=== PATIENT | male | born 1940 | race Asian ===

== ENCOUNTER 2021-03-07 21:13 | Inpatient (IN) | payer MEDICARE, BC ==
[~2021-03-07] VITALS: Ht 177.8 cm; Wt 73.0 kg
--- NOTE | 2021-03-07 21:39 | NUR ---
PATIENT TO ER BED 10 [facility]IBRA FROM FACILITY FOR UNWITNESSED GROUND LEVEL FALL. PATIENT IS BASELINE ALERT AND ORIENTED x1. PATIENT IS BREATHING EVENLY AND UNLABORED ON ROOM AIR. CONNECTED TO THE MONITOR.
[2021-03-07 22:42] LABS: BASOPHILS # (AUTO) 0.1 /CMM (0.0-0.2); BASOPHILS % (AUTO) 0.9 % (0.0-2.0); EOSINOPHILS % (AUTO) 3.5 % (0.0-6.0); HEMATOCRIT 34 % (39-51); HEMOGLOBIN 10.8 g/dL (13.5-17.5); LYMPHOCYTES # (AUTO) 2.2 /CMM (0.8-4.8); LYMPHOCYTES % (AUTO) 18.3 % (20.0-44.0); MEAN CORPUSCULAR HGB CONC 32 g/dl (31.0-36.0); MEAN CORPUSCULAR VOLUME 91 fL (80-96); MONOCYTES # (AUTO) 1.3 /CMM (0.1-1.30); MONOCYTES % (AUTO) 10.8 % (2.0-12.0); NEUTROPHILS % (AUTO) 66.5 % (43.0-81.0); PLATELET COUNT (AUTO) 382 /CMM (150-450); RED BLOOD CELL COUNT(AUTO) 3.75 MIL/uL (4.5-6.0); WHITE BLOOD COUNT (AUTO) 12.1 K/uL (4.3-11.0)
[2021-03-07 22:49] LABS: CALCIUM, SERUM 8.1 mg/dL (8.5-10.1); CREATININE 0.9 mg/dL (0.6-1.3); POTASSIUM 4.4 mmol/L (3.5-5.1)
--- NOTE | 2021-03-07 22:54 | NUR ---
COVID SWAB ANTIGEN SENT TO THE LAB.
[2021-03-07 22:55] LABS: ALBUMIN 2.5 g/dL (3.4-5.0); BILIRUBIN,TOTAL 0.6 mg/dL (0.2-1.0); TOTAL PROTEIN, SERUM 6.5 g/dL (6.4-8.2)
[2021-03-07] MEDS ORDERED: IOHEXOL-300 100 ML VIAL IV ONE (23:11)
[2021-03-07] MEDS ORDERED: IV NS 0.9% 250 ML IV ONE (23:11)
[2021-03-07] MEDS ORDERED: CT SWABBABLE VALVE TRANS SET 1 EA INFUS.SET MC ONE (23:11)
--- NOTE | 2021-03-07 23:17 | NUR ---
PER LAB COVID NEG
--- NOTE | 2021-03-07 23:21 | NUR ---
PATIENT TAKEN TO CT W/ CONTRAST
[2021-03-08] MEDS ORDERED: MAGNESIUM HYDROXIDE 30 ML UDC PO PRN
[2021-03-08] MEDS ORDERED: Z GUARD REMEDY 2 OZ OINT TP PRN
[2021-03-08] MEDS ORDERED: ACETAMINOPHEN 325 MG TABLET PO PRN
[2021-03-08] MEDS ORDERED: ZOLPIDEM TARTRATE 5 MG TABLET PO PRN
[2021-03-08] MEDS ORDERED: HYDROCODONE/APAP 5/325MG TABLET PO PRN
[2021-03-08] MEDS ORDERED: MAG HYDROX/AL HYDROX/SIMETH 30 ML UDC PO PRN
[2021-03-08] MEDS ORDERED: ASPIRIN 325 MG TABLET PO ONE
[2021-03-08] MEDS ORDERED: ONDANSETRON HCL/PF 4 MG/2 ML VIAL IVP PRN
[2021-03-08] MEDS ORDERED: ASPIRIN 325 MG TABLET ONE (00:26)
--- NOTE | 2021-03-08 02:04 | NUR ---
BED 106
--- NOTE | 2021-03-08 02:09 | NUR ---
RN NOTES RECEIVED ER ADMISSION REPORT FROM GREGORIO BAEZ. ALL PERTINENT ADMISSION INFO REGARDING PT NOTED. WILL WAIT FOR PT TO BE TRANSFERRED TO UNIT AND ADDRESS NEEDS ACCORDINGLY. RESEARCH FOOD TECHNOLOGIST MADE AWARE.
--- NOTE | 2021-03-08 02:13 | NUR ---
REPORT GIVEN TO HANANE PERKINS FOR BERNARDINO.
[2021-03-08 02:25] VITALS: BP 144/87
--- NOTE | 2021-03-08 02:25 | NUR ---
RN NOTES RECEIVED PT FROM ER VIA GURNEY ACCOMPANIED BY 2 ER STAFFS AND TRANSFERRED TO BED VIA 2 PERSON ASSIST. PT IS ALERT AND ORIENTED X2-3. PT ON ROOM AIR WITH RESPIRATIONS EVEN AND UNLABORED. COMPREHENSIVE PHYSICAL ASSESSMENT AND PATIENT CARE DONE. CALL LIGHT WITHIN REACH, SAFETY MEASURES AND ISOLATION PRECAUTION IN PLACE, WILL CONTINUE MONITOR AND ASSESS THROUGHOUT THE SHIFT. WILL CARRY OUT MD ORDERS ACCORDINGLY. DIRECTOR PRODUCT SAFETY MADE AWARE.
--- NOTE | 2021-03-08 02:25 | NUR ---
PATIENT TAKEN TO ASSIGNED ROOM FOR BERNARDINO.
[2021-03-08] MEDS: ENOXAPARIN SODIUM 40 MG/0.4 ML DISP.SYRIN SQ SCH ×2 (03:05→20:54)
--- NOTE | 2021-03-08 03:30 | NUR ---
RN NOTES PATIENT REMAINS IN NO ACUTE RESPIRATORY DISTRESS AT THIS TIME, NO CHANGES TO CONDITION/STATUS. AM PATIENT CARE DONE. ORGANISATIONAL PSYCHOLOGIST WELL AWARE. WILL CONTINUE TO MONITOR AND REASSESS FOR ANY CHANGES THROUGHOUT THE SHIFT
[2021-03-08 04:00] VITALS: BP 140/80
[2021-03-08] MEDS ORDERED: DEXTROSE 50%-WATER 50 ML DISP.SYRIN IV PRN (04:30)
[2021-03-08] MEDS: INSULIN REGULAR, HUMAN 100 UNIT/ML 3 ML VIAL SQ PRN (05:09)
[2021-03-08] MEDS: BLOOD SUGAR DIAGNOSTIC 1 EACH STRIP IN SCH ×4 (05:09→23:39)
[2021-03-08] MEDS: METOPROLOL TARTRATE 25 MG TABLET PO SCH ×3 (06:28→20:52)
--- NOTE | 2021-03-08 06:50 | NUR ---
RN CLOSING NOTE: PATIENT REMAINS IN ROOM IN NO SIGNS OF RESPIRATORY DISTRESS, PATIENT STILL ON 5L OF O2 VIA NC TOLERATING WELL SATURATING @ >95% SP02. SAFETY MEASURES IMPLEMENTED, BED IN LOWEST POSITION, LOCKED, SIDE RAILS UP, CALL LIGHT WITHIN REACH. ALL NEEDS AND ORDERS ADDRESSED DURING THE SHIFT. IV ACCESS MAINTAINED INTACT, SECURED AND FLUSHING WELL. ALL DUE MEDS GIVEN ORDERED & SCHEDULED ; PATIENT TOLERATED WELL. PATIENT KEPT CLEAN AND COMFORTABLE WITHIN THE SHIFT. PATIENT ENDORSED TO INCOMING SHIFT RN WITH STABLE VITAL SIGN AND FOR CONTINUITY OF CARE, WILL ALSO ENDORSE TO AM SHIFT RN TO REFER TO HOSPITALIST ONCE SWALLOW EVAL DONE FOR APPROPRIATE DIET. AM SHIFT SUGGESTION CLERK MADE AWARE.
[2021-03-08 06:51] LABS: BASOPHILS # (AUTO) 0.1 /CMM (0.0-0.2); BASOPHILS % (AUTO) 0.7 % (0.0-2.0); EOSINOPHILS % (AUTO) 3.7 % (0.0-6.0); HEMATOCRIT 34 % (39-51); HEMOGLOBIN 10.9 g/dL (13.5-17.5); LYMPHOCYTES # (AUTO) 1.9 /CMM (0.8-4.8); LYMPHOCYTES % (AUTO) 17.5 % (20.0-44.0); MEAN CORPUSCULAR HGB CONC 32 g/dl (31.0-36.0); MEAN CORPUSCULAR VOLUME 92 fL (80-96); MONOCYTES % (AUTO) 9.1 % (2.0-12.0); NEUTROPHILS # (AUTO) 7.4 /CMM (1.8-8.9); PLATELET COUNT (AUTO) 368 /CMM (150-450); RED BLOOD CELL COUNT(AUTO) 3.68 MIL/uL (4.5-6.0); WHITE BLOOD COUNT (AUTO) 10.8 K/uL (4.3-11.0)
[2021-03-08 07:29] LABS: CALCIUM, SERUM 8.1 mg/dL (8.5-10.1); CREATININE 0.7 mg/dL (0.6-1.3); MAGNESIUM 2.1 mg/dL (1.8-2.4); PHOSPHORUS 3.7 mg/dL (2.5-4.9); POTASSIUM 3.8 mmol/L (3.5-5.1)
--- NOTE | 2021-03-08 07:30 | NUR ---
RN OPENING NOTE: PATIENT IN BED, NO SIGNS OF RESPIRATORY DISTRESS. PATIENT CONTINUES ON 5L OF O2 VIA NC TOLERATING WELL SATURATING @ >95% SP02. SAFETY MEASURES IMPLEMENTED, BED IN LOWEST POSITION, LOCKED, SIDE RAILS UP, CALL LIGHT WITHIN REACH. ALL NEEDS AND ORDERS ADDRESSED AT THIS TIME. IV ACCESS MAINTAINED INTACT, SECURED AND FLUSHING WELL. WILL CONTINUE POC AND FOLLOW UP WITH DIETITIAN AND PMD REGARDING DIET CONCERNS WHEN SWALLOW EVALUATION COMPLETE.
[2021-03-08 08:00] VITALS: BP 131/98
[2021-03-08] MEDS ORDERED: MAGN400O6 GT (08:05)
[2021-03-08] MEDS ORDERED: PANT40TA2 GT (08:05)
[2021-03-08] MEDS ORDERED: LACT1CAP61 GT (08:05)
[2021-03-08] MEDS ORDERED: INSU100V7 SQ (08:05)
[2021-03-08] MEDS ORDERED: ACET325T53 GT ×2 (08:05)
[2021-03-08] MEDS ORDERED: LEVE1000 GT (08:05)
[2021-03-08] MEDS ORDERED: MULT-447 GT (08:05)
[2021-03-08] MEDS ORDERED: INSU100V39 SQ (08:05)
[2021-03-08] MEDS ORDERED: LATA2.5D15 OP (08:05)
[2021-03-08] MEDS ORDERED: AMIN887L GT (08:05)
[2021-03-08] MEDS ORDERED: ATOR80TA GT (08:05)
[2021-03-08] MEDS ORDERED: METO25TA6 GT (08:05)
[2021-03-08] MEDS ORDERED: EZET10TA15 GT (08:05)
[2021-03-08] MEDS ORDERED: FURO-145 GT (08:05)
[2021-03-08] MEDS ORDERED: MAGN400T8 GT (08:05)
[2021-03-08] MEDS ORDERED: CRAN3875 GT (08:05)
[2021-03-08] MEDS ORDERED: ASCO500C17 GT (08:05)
[2021-03-08] MEDS ORDERED: LORA-259 PO (08:05)
[2021-03-08] MEDS ORDERED: METOPROLOL TARTRATE 25 MG TABLET PO SCH (09:00)
[2021-03-08 12:00] VITALS: BP 128/89
[2021-03-08] MEDS ORDERED: LORAZEPAM INJ 2 MG/ML VIAL IV PRN (15:30)
[2021-03-08 16:00] VITALS: BP 126/81
--- NOTE | 2021-03-08 19:30 | NUR ---
RN CLOSING NOTE: PATIENT IN BED, NO SIGNS OF RESPIRATORY DISTRESS. PATIENT CONTINUES ON 5L OF O2 VIA NC TOLERATING WELL SATURATING @ >95% SP02. CONTINUES ON TELEMETRY WITHOUT ECTOPY OR C/O CP OR SOB. SAFETY MEASURES IMPLEMENTED, BED IN LOWEST POSITION, LOCKED, SIDE RAILS UP, CALL LIGHT WITHIN REACH. ALL NEEDS AND ORDERS ADDRESSED AT THIS TIME. IV ACCESS MAINTAINED INTACT, SECURED AND FLUSHING WELL. SWALLOW EVALUATION COMPLETE WITH DIET ORDERED, DIETARY CONSULT PENDING. POOR APPETITE, 25% OF LUNCH AND DINNER CONSUMED. MRI WITH AND WITHOUT CONTRAST FOR TOMORROW. MRI CHECKLIST COMPLETED. WILL ENDORSE TO NIGHT NURSE FOR BERNARDINO.
--- NOTE | 2021-03-08 19:40 | NUR ---
RN NOTE RECEIVED PT IN BED, ALERT AND ORIENTED X 2-3. NO S/SX OF DISTRESS NOTED. DENIES ANY SOB OR PAIN. ON ROOM AIR. O2 SAT AT 98 %. IV ON RAC PATENT AND INTACT, FLUSHES WELL. ALL SAFETY MEASURES IMPLEMENTED PER PROTOCOL, CALL LIGHT WITHIN REACH, BED LOCKED IN LOWEST POSITION. WILL CONTINUE TO MONITOR. SIDE RAILS UP.
[2021-03-08 20:00] VITALS: BP 130/76
--- NOTE | 2021-03-08 22:29 | NUR ---
RN NOTE ENDORSED TO GREGORIO WOOD FOR BERNARDINO. PT IN BED, SLEEPING, AROUSES EASILY. NO DISTRESS NOTED.
--- NOTE | 2021-03-08 22:35 | NUR ---
MS RN NOTES RECEIVED PT SLEEPING. NO COMPLAINT OF PAIN OR ACUTE RESPIRATORY DISTRESS. WILL CONTINUE TO MONITOR.
--- NOTE | 2021-03-09 00:17 | NUR ---
MS RN NOTES PATIENT REFUSED 0000 VITALS.
--- NOTE | 2021-03-09 02:54 | NUR ---
MS RN NOTES PATIENT REFUSING BED BATH AND CONTINUES TO REFUSE VITALS TO BE TAKEN.
[2021-03-09] MEDS: INSULIN REGULAR, HUMAN 100 UNIT/ML 3 ML VIAL SQ PRN ×2 (06:40→23:14)
[2021-03-09] MEDS: BLOOD SUGAR DIAGNOSTIC 1 EACH STRIP IN SCH ×4 (06:41→23:13)
--- NOTE | 2021-03-09 06:55 | NUR ---
MS RN NOTES PATIENT IN BED, ASLEEP, ALERT AND ORIENTED X 1-2. BREATHING EVEN AND UNLABORED ON ROOM AIR. SHOWS NO SIGNS OF ACUTE RESPIRATORY DISTRESS. NO ACUTE PAIN. IV CLEAN DRY AND INTACT. SHOWS NO SIGNS OF INFILTRATION, NO REDNESS. ALL DUE MEDICATIONS GIVEN. ALL NEEDS ATTENDED TO. SAFETY PRECAUTIONS IN PLACE. BED IN LOWEST POSITION, LOCKED, AND CALL LIGHT KEPT WITHIN REACH. WILL ENDORSE TO AM NURSE.
--- NOTE | 2021-03-09 07:30 | NUR ---
MS/RN OPENING NOTE RECEIVED PATIENT FROM WIRE ROLLER NURSE. PATIENT SEEN LAYING IN HOSPITAL BED A/O X1-2. NO ACUTE DISTRESS NOTED AT THIS TIME. PATIENT ON ROOM AIR, TOLERATING WELL, NO SOB NOTED, BREATHING EVEN NON LABORED. SAFETY MEASURES IN PLACE, BED LOCKED AND IN LOWEST POSITION, CALL LIGHT WITHIN REACH, WILL CONTINUE TO MONITOR AND ENSURE SAFETY.
[2021-03-09 08:00] VITALS: BP 112/78
--- NOTE | 2021-03-09 08:20 | NUR ---
WOUND CARE CONSULT: PT ADAMANTLY REFUSED TO TURN FOR SKIN ASSESSMENT. LIMITED ASSESSMENT TODAY DUE TO PT REFUSAL. PT NOTED TO BE IRRITABLE. CLAMPED G TUBE NOTED WELL DISCOLORATION TO LEFT CHEEK, PRESENT ON ADMISSION. PER ADMISSION PHOTO THERE IS SCARRING TO SACRUM WHICH EXTENDS TO BUTTOCKS, PRESENT ON ADMISSION. RECOMMENDATIONS MADE FOR SKIN PROTECTION. DISCUSSED WITH NURSING STAFF. MD IN AGREEMENT WITH PLAN OF CARE.
[2021-03-09] MEDS: METOPROLOL TARTRATE 25 MG TABLET PO SCH ×2 (08:52→22:06)
[2021-03-09 10:01] LABS: FERRITIN 724 ng/mL (8-388)
[2021-03-09 10:18] LABS: IRON, SERUM 35 ug/dl (50-175); TOTAL IRON BINDING CAPACITY 153 ug/dl (250-450)
[2021-03-09] MEDS ORDERED: IOHEXOL-300 100 ML VIAL IV ONE (14:55)
[2021-03-09] MEDS ORDERED: IV NS 0.9% 250 ML IV ONE (14:56)
[2021-03-09 16:49] VITALS: BP 120/85
--- NOTE | 2021-03-09 18:50 | NUR ---
MS/IT DESKTOP SUPPORT TECHNICIAN REQUEST PATIENT'S , ANASTASIA, HAS REQUESTED TO SPEAK TO THE HOSPITALIST, ATTEMPTS WERE MADE THROUGHOUT THE SHIFT TO HAVE THE HOSPITALIST REACH OUT TO THE PATIENT'S . PATIENT'S STATED SHE HAS NOT RECEIVED A CALL BACK AT THIS TIME. PATIENT'S IS REQUESTING TO HAVE THE PATIENT BE DISCHARGED TOMORROW MORNING. WILL ENDORSE TO ON-COMING NURSE.
--- NOTE | 2021-03-09 18:56 | NUR ---
MS/RN CLOSING NOTE PATIENT SEEN LAYING IN HOSPITAL BED A/O X1-2. NO ACUTE DISTRESS NOTED AT THIS TIME. PATIENT ON ROOM AIR, TOLERATING WELL, NO SOB NOTED, BREATHING EVEN NON LABORED. SAFETY MEASURES IN PLACE, BED LOCKED AND IN LOWEST POSITION, CALL LIGHT WITHIN REACH, WILL CONTINUE TO MONITOR AND ENSURE SAFETY. ALL NEEDS MET THROUGHOUT THE SHIFT. WILL ENDORSE TO HIGH MAN NURSE.
--- NOTE | 2021-03-09 19:35 | NUR ---
RN NOTE RECEIVED PT IN BED, ALERT AND ORIENTED X 2-3. NO S/SX OF DISTRESS NOTED. DENIES ANY SOB OR PAIN. ON ROOM AIR, TOLERATING WELL. IV ON RAC PATENT AND INTACT, FLUSHES WELL. ALL SAFETY MEASURES IMPLEMENTED PER PROTOCOL, CALL LIGHT WITHIN REACH, BED LOCKED IN LOWEST POSITION. WILL CONTINUE TO MONITOR. SIDE RAILS UP.
[2021-03-09 20:00] VITALS: BP 124/84
[2021-03-09] MEDS: ENOXAPARIN SODIUM 40 MG/0.4 ML DISP.SYRIN SQ SCH (22:08)
[2021-03-10 04:00] VITALS: BP 144/96
[2021-03-10] MEDS: BLOOD SUGAR DIAGNOSTIC 1 EACH STRIP IN SCH ×2 (05:51→12:18)
[2021-03-10] MEDS: INSULIN REGULAR, HUMAN 100 UNIT/ML 3 ML VIAL SQ PRN (05:51)
--- NOTE | 2021-03-10 06:30 | NUR ---
RN NOTE PT SLEEPING, AROUSES EASILY. BREATHING EVEN AND UNLABORED. NO SIGNIFICANT CHANGES NOTED. FSBS AT 107, NO INSULIN COVERAGE. NO SIGNS OF PAIN. ALL SAFETY MEASURES MAINTAINED, ON FREQUENT VISUAL CHECKS. WILL ENDORSE TO NEXT SHIFT NURSE FOR BERNARDINO.
--- NOTE | 2021-03-10 07:30 | NUR ---
RN OPENING PATIENT PRESENT IN BED, A/OX2, MED SURG STATUS, ON ROOM AIR, SPO2 98%, BED RESTED, DENIES PAIN OR DISCOMFORT, IV LINE INTACT AND PATENT,SAFETY MEASURES IN PLACE, BED LOCKED, LOWEST POSITION, BED ALARM ON, WILL CONT TO MONITOR
[2021-03-10 08:00] VITALS: BP 148/85
[2021-03-10 08:24] VITALS: BP 148/85
[2021-03-10] MEDS: METOPROLOL TARTRATE 25 MG TABLET PO SCH (08:24)
--- NOTE | 2021-03-10 09:00 | NUR ---
DAUGHTER ANASTASIA CALLED, REQUESTED PATIENT TO BE DISCHARGE, NURSING SENIOR MEDICAL TRANSCRIPTIONIST, FASHION CONSULTANT SELLING AND MD AWARE
--- NOTE | 2021-03-10 10:27 | NUR ---
DR. HOYOS NOTIFIED AND MADE AWARE COMPLAINING THAT NO DOCTOR CALLING HER /UPDATING HER WITH PT. CONDITION AND WANTED TO TAKE HIM BACK TO SNF.EMOTIONAL SUPPORT GIVEN CM MADE AWARE.
--- NOTE | 2021-03-10 13:37 | NUR ---
DISCHARGE NOTE Ambulance at bed site [facility] Unit [address][id number], confirmed patient name and destination, report given to Vanessa PERKINS at [facility], [place] notifyed, discharge instruction and records provided, IV line and ID band removed
== END 2021-03-10 13:47 | DRG 280 ==
LOC: ER 21:18 → TELE1 03-08 02:15 → MEDSG1 03-08 20:25
PROVIDERS: ADMIT Nurse Practitioner Acute Care
DX: R55 Syncope and collapse (principal); G93.41 Metabolic encephalopathy; I21.A1 Myocardial infarction type 2; E44.0 Moderate protein-calorie malnutrition; N39.0 Urinary tract infection, site not specified; E11.9 Type 2 diabetes mellitus without complications; Z86.73 Personal history of transient ischemic attack (TIA), and cerebral infarction without residual deficits; E78.5 Hyperlipidemia, unspecified; G40.909 Epilepsy, unspecified, not intractable, without status epilepticus; I25.10 Atherosclerotic heart disease of native coronary artery without angina pectoris; F03.90 Unspecified dementia, unspecified severity, without behavioral disturbance, psychotic disturbance, mood disturbance, and anxiety; Z20.822 Contact with and (suspected) exposure to COVID-19; I48.91 Unspecified atrial fibrillation; N40.0 Benign prostatic hyperplasia without lower urinary tract symptoms; R13.10 Dysphagia, unspecified; Z91.81 History of falling; Z95.0 Presence of cardiac pacemaker; K21.9 Gastro-esophageal reflux disease without esophagitis; J44.9 Chronic obstructive pulmonary disease, unspecified; Z86.16 Personal history of COVID-19; I50.9 Heart failure, unspecified; I11.0 Hypertensive heart disease with heart failure; M62.50 Muscle wasting and atrophy, not elsewhere classified, unspecified site; W18.30XA Fall on same level, unspecified, initial encounter; D72.829 Elevated white blood cell count, unspecified; Y92.129 Unspecified place in nursing home as the place of occurrence of the external cause; K57.90 Diverticulosis of intestine, part unspecified, without perforation or abscess without bleeding; Z93.1 Gastrostomy status; L89.159 Pressure ulcer of sacral region, unspecified stage; G93.89 Other specified disorders of brain; I70.8 Atherosclerosis of other arteries; K82.8 Other specified diseases of gallbladder
CPT/HCPCS: 36415; 70450-TC; 70460-TC; 71045-TC; 71270-TC; 72125-TC; 74178; 80048-TC; 80053-TC; 82728-TC; 82962-TC; 83540-TC; 83605-TC; 83735-TC; 84100-TC; 84484-TC; 85025-TC; 87081-TC; 92526; 92611-TC; 97112-TC; 97530-TC; C9803; G0378; J1650; J1815; J7050; Q9967; U0003